=== PATIENT | male | born 1985 | race Two or more races ===

== ENCOUNTER 2018-05-23 07:51 | Emergency (ER) | payer SELFPAY ==
[~2018-05-23] VITALS: Ht 182.9 cm; Wt 96.2 kg
[2018-05-23 08:05] VITALS: Ht 182.9 cm; Wt 96.2 kg
[2018-05-23 09:31] VITALS: BP 131/62
== END 2018-05-23 09:31 | disposition home or self-care (01) ==
LOC: ED 07:51
DX: G89.29 Other chronic pain (principal); Q66.89 Other specified congenital deformities of feet